=== PATIENT | male | born 1995 | race African-American/Black ===

== ENCOUNTER 2020-10-18 08:32 | Emergency (ER) | payer OTHER ==
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
[2020-10-18] MEDS ORDERED: TETRACAINE HCL 0.5% 4ML OPTH ONE (08:51)
[2020-10-18] MEDS ORDERED: FLUORESCEIN SODIUM 1 MG/WRAP ONE (08:51)
[2020-10-18 21:47] VITALS: BP 114/59; TEMP 98.2; O2SAT 99
== END 2020-10-18 09:40 | disposition home or self-care (01) ==
LOC: ER 08:32
DX: S05.01XA Injury of conjunctiva and corneal abrasion without foreign body, right eye, initial encounter (principal); Y04.0XXA Assault by unarmed brawl or fight, initial encounter; Y93.9 Activity, unspecified; Y92.9 Unspecified place or not applicable
CPT/HCPCS: 99284